=== PATIENT | male | born 1965 | race Two or more races ===

== ENCOUNTER 2018-02-25 21:16 | Emergency (ER) | payer SELFPAY | END 2018-02-25 22:30 | disposition left against medical advice (07) | LOC: C.ER 21:16 | DX: Z02.89 Encounter for other administrative examinations (principal); F10.10 Alcohol abuse, uncomplicated ==

== ENCOUNTER 2018-12-28 21:58 | Emergency (ER) | payer MEDICAID ==
[2018-12-28 22:09] VITALS: BP 131/89; PULSE 103; RESP 20; TEMP 97.9; O2SAT 95
--- NOTE | 2018-12-28 22:37 | C.PDOC ---
History Of Present Illness 53 year old male presents to the ED requesting alcohol detox. Patient's last visit to the ED was on 2015 for same presentation. Patient admits to drinking alcohol tonight. Patient denies SI/HI, hallucinations, injury, fall, trauma. Time Seen by Provider: 12/28/18 22:30 Chief Complaint (Nursing): Substance Abuse History Per: Patient History/Exam Limitations: intoxication Onset/Duration Of Symptoms: Days Current Symptoms Are (Timing): Still Present Suicide/Self Injury Attempted (Context): None Modifying Factor(s): Alcohol Associated Symptoms: denies: Depression, Suicidal Thoughts, Suicidal Plan Recent travel outside of the [place]: No Additional History Per: Patient Past Medical History Reviewed: Historical Data, Nursing Documentation, Vital Signs Vital Signs: Last Vital Signs Temp 97.9 F 12/28/18 22:00 Pulse 103 H 12/28/18 22:00 Resp 20 12/28/18 22:00 BP 131/89 12/28/18 22:00 Pulse Ox 95 12/28/18 22:00 - Medical History PMH: No Chronic Diseases Surgical History: No Surg Hx Family History: States: Unknown Family Hx - Social History Hx Alcohol Use: Yes Hx Substance Use: No - Immunization History Hx Tetanus Toxoid Vaccination: No Hx Influenza Vaccination: No Hx Pneumococcal Vaccination: No Review Of Systems Constitutional: Negative for: Fever, Chills Cardiovascular: Negative for: Chest Pain Respiratory: Negative for: Shortness of Breath Gastrointestinal: Negative for: Nausea, Vomiting, Abdominal Pain Skin: Negative for: Rash Psych: Negative for: Depression, Suicidal ideation Physical Exam - Physical Exam Appears: Non-toxic, No Acute Distress, Other (AOB, tall thin white male) Skin: Normal Color, Warm, Dry Head: Atraumatic, Normacephalic Eye(s): bilateral: Normal Inspection Neck: Normal ROM, Supple Chest: Symmetrical Cardiovascular: Rhythm Regular Respiratory: Normal Breath Sounds, No Rales, No Rhonchi, No Wheezing Gastrointestinal/Abdominal: Soft, No Tenderness, No Guarding, No Rebound Extremity: Normal ROM, No Tenderness, No Swelling Neurological/Psych: Oriented x3, Normal Speech, Normal Cognition Gait: Steady ED Course And Treatment O2 Sat by Pulse Oximetry: 95 (ON RA) Pulse Ox Interpretation: Normal Medical Decision Making Medical Decision Making: etoh abuse, stable gait no detox avail tonight opt f/u given Disposition Doctor Will See Patient In The: Office Counseled Patient/Family Regarding: Studies Performed, Diagnosis - Disposition Referrals: Alcoholics Anonymous [Outside] [facility] [Outside] [facility] [Outside] [facility] [Outside] [facility] [Outside] Disposition: HOME/ ROUTINE Disposition Time: 22:37 Condition: GOOD Additional Instructions: seek outpatient f/u for pre-screen Detox availability Seek AA Seek nightly Alf placement Instructions: Alcohol Use - When Is Drinking a Problem? Forms: [facility] (Icelandic) - Clinical Impression Clinical Impression: Alcohol abuse - Scribe Statement The provider has reviewed the documentation as recorded by the Scribe Kulwant Huffman All medical record entries made by the Scribe were at my direction and personally dictated by me. I have reviewed the chart and agree that the record accurately reflects my personal performance of the history, physical exam, medical decision making, and the department course for this patient. I have also personally directed, reviewed, and agree with the discharge instructions and disposition.
== END 2018-12-28 22:42 | disposition home or self-care (01) ==
LOC: C.ER 21:58
DX: F10.10 Alcohol abuse, uncomplicated (principal)

== ENCOUNTER 2018-12-29 07:53 | Emergency (ER) | payer MEDICAID ==
--- NOTE | 2018-12-29 08:31 | C.PDOC ---
History Of Present Illness 53 years old male presents to ED requesting detox from alcohol. Patient reports last use was 3 hours ago. Patient was informed that there are no detox beds available. Patient now states "I also have mid sternal chest pain but I feel like it is more of a lung problem than chest." Patient reports associated cough. Denies shortness of breath, nausea, vomiting, or any other physical complaints. Time Seen by Provider: 12/29/18 08:31 Chief Complaint (Nursing): Chest Pain History Per: Patient History/Exam Limitations: no limitations Onset/Duration Of Symptoms: Hrs Current Symptoms Are (Timing): Still Present Modifying Factors: None Exacerbating Factors: None Alleviating Factors: None Recent travel outside of the [place]: No Past Medical History Reviewed: Historical Data, Nursing Documentation, Vital Signs Vital Signs: Last Vital Signs Temp 9 F L 12/29/18 08:13 Pulse 98 H 12/29/18 08:13 Resp 20 12/29/18 08:13 BP 134/81 12/29/18 08:13 Pulse Ox 97 12/29/18 08:13 - Medical History PMH: No Chronic Diseases Surgical History: No Surg Hx Family History: States: Unknown Family Hx - Social History Hx Alcohol Use: Yes Hx Substance Use: No - Immunization History Hx Tetanus Toxoid Vaccination: Yes Hx Influenza Vaccination: No Hx Pneumococcal Vaccination: Yes Review Of Systems Except As Marked, All Systems Reviewed And Found Negative. Constitutional: Negative for: Fever, Chills Cardiovascular: Positive for: Chest Pain Respiratory: Positive for: Cough. Negative for: Shortness of Breath Gastrointestinal: Negative for: Nausea, Vomiting, Abdominal Pain, Diarrhea Skin: Negative for: Rash Neurological: Negative for: Weakness, Numbness Physical Exam - Physical Exam Appears: Well, Non-toxic, No Acute Distress, Unkempt, Other (ETOH on breath ) Skin: Normal Color, Warm, Dry, No Rash Head: Atraumatic, Normacephalic Eye(s): bilateral: Normal Inspection, PERRL, EOMI, Other (Conjunctiva clear) Oral Mucosa: Moist ([place] ) Throat: Normal, No Erythema, No Exudate, No Drooling, No Mass Neck: Normal ROM, Supple Chest: Symmetrical, No Tenderness, Other Cardiovascular: Rhythm Regular, Other (Normal S1, S2) Respiratory: No Decreased Breath Sounds, No Rales, Rhonchi (Scattered ), No Wheezing Gastrointestinal/Abdominal: Bowel Sounds (Active ), Soft, No Tenderness, No Guarding, No Rebound Extremity: Normal ROM Extremity: Bilateral: Atraumatic, Normal Color And Temperature, Normal ROM, Other (no cyanosis or edema) Pulses: Left Radial: Normal, Right Radial: Normal Neurological/Psych: Oriented x3, Normal Speech, Normal Motor (5/5 muscle strength), Normal Sensation, Other (GCS 15, CN 2-12 intact) Gait: Steady ED Course And Treatment - Laboratory Results Result Diagrams: 12/29/18 09:00 12/29/18 09:00 O2 Sat by Pulse Oximetry: 97 (RA) Pulse Ox Interpretation: Normal - Other Rad CXR X-Ray: Viewed By Me, Read By Radiologist Interpretation: Date of service: 12/29/2018. HISTORY: chest pain. CO MPARISON: No prior. TECHNIQUE: Chest PA and lateral. FINDINGS: LUNGS: No evidence of focal infiltrate or consolidation in the lungs. PLEURA: No significant pleural effusion identified. No pneumothorax apparent. CARDIOVASCULAR: No aortic atherosclerotic calcification present. Normal cardia c size. No pulmonary vascular congestion. OSSEOUS STRUCTURES: No significant abnormalities. VISUALIZED UPPER ABDOMEN: Normal. OTHER FINDINGS: None. IMPRESSION: No active disease. Medical Decision Making Medical Decision Making: Plan: * Blood work * CXR EKG: * Normal Sinus Rhythm at 89 bpm * Normal intervals * No ST elevations or depressions 10:45: Patient's X-Ray is negative. Patient denies any chest pain at this time, Patient complaints of mild feet pain but is ambulating with no difficulties. Patient was also told there are no detox beds available. Will prescribe Tylenol for the feet pain. Patient is now stable for discharge and will be discharged. Care instructions advised and patient is in agreement. Return if symptoms persist or worsen. Disposition Counseled Patient/Family Regarding: Studies Performed, Diagnosis, Need For Followup - Disposition Referrals: Martín Fry MD [Staff Provider] - [facility] [Outside] [facility] [Outside] Disposition: OTHER INSTITUTION Disposition Time: 10:51 Instructions: Chest Pain That Is Not Caused by the Heart (DC), Alcohol Abuse and Alcoholism (DC) Forms: [facility] (Northern Irish), General Discharge Instructions - POA Present On Arrival: None - Clinical Impression Clinical Impression: Chest discomfort, Alcohol intoxication - Scribe Statement The provider has reviewed the documentation as recorded by the Scribe Esperanza Dejesus All medical record entries made by the Scribe were at my direction and personally dictated by me. I have reviewed the chart and agree that the record accurately reflects my personal performance of the history, physical exam, medic al decision making, and the department course for this patient. I have also personally directed, reviewed, and agree with the discharge instructions and disposition.
[2018-12-29 09:04] LABS: BASO # 0.1 K/uL (0.0-0.2); BASO % 0.7 % (0.0-2.0); EOS # 0.2 K/uL (0.0-0.7); EOS % 3.2 % (0.0-4.0); LYMPH # 2.3 K/uL (1.0-4.3); LYMPH % 30.2 % (20.0-40.0); MEAN CELL VOLUME 92.9 fL (80.0-94.0); MEAN CORPUSCULAR HGB CONC 33.4 g/dL (33.0-37.0); MEAN PLATELET VOLUME 6.7 fL (7.2-11.7); MONO # 0.6 K/uL (0.0-0.8); MONO % 8.1 % (0.0-10.0); NEUT # 4.4 K/uL (1.8-7.0); NEUT % 57.8 % (50.0-75.0); RBC 4.85 Mil/uL (4.40-5.90); RED CELL DISTRIBUTION WIDTH 13.4 % (11.5-14.5); WHITE BLOOD COUNT 7.6 K/uL (4.8-10.8)
[2018-12-29 09:26] LABS: ALB/GLOB RATIO 1.6 (1.0-2.1); ALBUMIN 4.9 g/dL (3.5-5.0); ALT/SGPT 21 U/L (21-72); AST/SGOT 46 U/L (17-59); BLOOD UREA NITROGEN 13 mg/dL (9-20); CALCIUM 8.7 mg/dl (8.6-10.4); GFR NON-AFRICAN AMERICAN > 60
--- NOTE | 2018-12-29 10:49 | RAD ---
Date of service: 12/29/2018 HISTORY: chest pain COMPARISON: No prior. TECHNIQUE: Chest PA and lateral FINDINGS: LUNGS: No evidence of focal infiltrate or consolidation in the lungs. PLEURA: No significant pleural effusion identified. No pneumothorax apparent. CARDIOVASCULAR: No aortic atherosclerotic calcification present. Normal cardiac size. No pulmonary vascular congestion. OSSEOUS STRUCTURES: No significant abnormalities. VISUALIZED UPPER ABDOMEN: Normal. OTHER FINDINGS: None. IMPRESSION: No active disease.
[2018-12-29 10:51] VITALS: BP 120/79; PULSE 89; RESP 16; TEMP 98
[2018-12-29 10:54] VITALS: O2SAT 97
--- NOTE | 2018-12-30 12:48 | CARD ---
APPROVED REPORT Date of service: 12/29/2018 EKG Measurement Heart [id number] <Conclusion> Normal sinus rhythm Low voltage QRS Inferior infarct, age undetermined Cannot rule out Anteroseptal infarct, age undetermined Abnormal ECG
== END 2018-12-29 11:20 | disposition home or self-care (01) ==
LOC: C.ER 07:53
DX: R07.89 Other chest pain (principal); F10.129 Alcohol abuse with intoxication, unspecified; Y90.7 Blood alcohol level of 200-239 mg/100 ml